=== PATIENT | female | born 1990 ===

== ENCOUNTER 2017-03-13 10:59 | Emergency (ER) | payer OTHER ==
[2017-03-13 11:08] VITALS: RESP 18
[2017-03-13] MEDS ORDERED: Sodium Chloride 0.9% 1,000 ML IV ONE ×2 (11:11→11:31)
[2017-03-13 11:42] LABS: BASO % 0.3 % (0.0-2.0); EOS % 0.6 % (0.0-4.0); HEMATOCRIT 40.8 % (34.0-47.0); LYMPH # 2.7 K/uL (1.0-4.3); LYMPH % 32.3 % (20.0-40.0); MEAN CELL VOLUME 85.8 fL (81.0-99.0); MEAN CORPUSCULAR HEMOGLOBIN 28.4 pg (27.0-31.0); MEAN CORPUSCULAR HGB CONC 33.1 g/dL (33.0-37.0); MEAN PLATELET VOLUME 8.8 fL (7.2-11.7); MONO # 0.7 K/uL (0.0-0.8); MONO % 7.9 % (0.0-10.0); RED CELL DISTRIBUTION WIDTH 13.9 % (11.5-14.5); WHITE BLOOD COUNT 8.3 K/uL (4.8-10.8)
[2017-03-13 11:53] LABS: CHLORIDE 103 mmol/L (98-107); POTASSIUM 3.7 mmol/L (3.6-5.2); SODIUM 140 mmol/L (132-148)
[2017-03-13 11:55] LABS: BILIRUBIN,TOTAL 0.8 mg/dL (0.2-1.3); GFR AFRICAN-AMERICAN > 60
[2017-03-13 11:56] LABS: ALB/GLOB RATIO 1.1 (1.0-2.1); ALKALINE PHOSPHATASE 64 U/L (38-126); ALT/SGPT 28 U/L (9-52); AST/SGOT 38 U/L (14-36); BLOOD UREA NITROGEN 5 mg/dL (7-17); CALCIUM 8.5 mg/dl (8.6-10.4); CARBON DIOXIDE 23 mmol/L (22-30); GLUCOSE,RANDOM 101 mg/dL (65-105); TOTAL PROTEIN 7.8 g/dL (6.3-8.3)
[2017-03-13] MEDS ORDERED: Sodium Chloride 0.9% 1,000 ML ONE (12:16)
[2017-03-13 12:37] LABS: RBC URINE 6 /hpf (0-3); URINE BACTERIA RARE (<OCC); URINE BILIRUBIN NEGATIVE (NEGATIVE); URINE BLOOD 2+ (NEGATIVE); URINE COLOR Yellow (YELLOW); URINE GLUCOSE (UA) NORMAL (Normal); URINE KETONE NEGATIVE (NEGATIVE); URINE LEUKOCYTE ESTERASE NEG Leu/uL (Negative); URINE PROTEIN NEGATIVE (NEGATIVE); URINE UROBILINOGEN NORMAL mg/dL (0.2-1.0); WBC URINE < 1 /hpf (0-5)
[2017-03-13 15:11] VITALS: BP 95/62; PULSE 65; TEMP 98.1; O2SAT 100
--- NOTE | 2017-03-13 15:55 | US ---
PROCEDURE: OB Pelvic Ultrasound HISTORY: and bleeding COMPARISON: None available. FINDINGS: UTERUS: Single Live intrauterine gestation. CRL equivalent to 6 weeks 5 days gestatioin Gestational sac diameter equivalent to 6 weeks 6 days gestation age (Ultrasound estimated): 6 weeks 6 days Date of delivery (Ultrasound estimated) : 10/31/2017 Heart rate: 115 bpm. 3 mm yolk sac identified. Sheri-gestational hemorrhage: Small subchorionic hemorrhage, 8 x 9 x 9 mm. Uterus measures 10.7 x 5.9 x 7.0 cm. No mass CERVIX: Closed. Measures 3.1 cm in length. RIGHT OVARY: Measures 2.6 x 2.0 x 2.2 cm. No mass. Normal flow. LEFT OVARY: Measures 3.7 x 1.3 x 2.6 cm. No mass. Normal flow. FREE FLUID: None. OTHER FINDINGS: None. IMPRESSION: Single live intrauterine gestation of approximately 6 weeks 6 days gestational age. heart rate 115 beats per minute. Small subchorionic hemorrhage. Otherwise unremarkable.
--- NOTE | 2017-03-13 16:30 | C.PDOC ---
History Of Present Illness 27-year-old female, presents to the emergency department with complaints of vaginal spotting and lower abdominal cramping. Patient notes similar symptoms, 15 days ago for which she was seen at another institution, and told that she had a threatened . Patient denies any nausea/vomiting. Pain is rated 5/ 10, it is constant, dull and crampy. No other complaints at this time. Time Seen by Provider: 03/13/17 11:11 Chief Complaint (Nursing): Female Genitourinary History Per: Patient History/Exam Limitations: no limitations Past Medical History Reviewed: Historical Data, Nursing Documentation, Vital Signs Vital Signs: Last Vital Signs Temp 98.1 F 03/13/17 15:10 Pulse 65 03/13/17 15:10 Resp 18 03/13/17 15:10 BP 95/62 L 03/13/17 15:10 Pulse Ox 100 03/13/17 18:16 Family History: States: Unknown Family Hx - Social History Hx Alcohol Use: No Hx Substance Use: No - Immunization History Hx Tetanus Toxoid Vaccination: No Hx Influenza Vaccination: No Review Of Systems Except As Marked, All Systems Reviewed And Found Negative. Constitutional: Negative for: Fever, Chills Cardiovascular: Negative for: Chest Pain, Palpitations Respiratory: Negative for: Shortness of Breath Gastrointestinal: Positive for: Abdominal Pain. Negative for: Nausea, Vomiting Genitourinary: Positive for: Vaginal Bleeding. Negative for: Vaginal Discharge Musculoskeletal: Negative for: Back Pain Skin: Negative for: Rash Physical Exam - Physical Exam Appears: Non-toxic, No Acute Distress Skin: Warm, Dry, No Rash Head: Atraumatic, Normacephalic Eye(s): bilateral: Normal Inspection, PERRL Nose: Normal Oral Mucosa: Moist Lips: Normal Appearing Neck: Normal ROM Respiratory: No Accessory Muscle Use Extremity: Normal ROM Neurological/Psych: Oriented x3, Normal Speech ED Course And Treatment - Laboratory Results Result Diagrams: 03/13/17 11:33 03/13/17 11:33 O2 Sat by Pulse Oximetry: 100 - CT Scan/US US pelvis Other Rad Studies (CT/US): Read By Radiologist, Radiology Report Reviewed CT/US Interpretation: Accession No. : [id number]. Patient Name / ID : CARMEN AYOUB / [id number]. Exam Date : 03/13/2017 14:12:22 ( Approved ). Study Comment : Sex / Age : F / 27Y. Creator : Ha Fox MD. Dictator : Ha Fox MD. Multineedle Shirrer : Aws Architect : Ha Fox MD. Approver2 : Report Date : 03/13/2017 15:53:56. My Comment : . PROCEDURE : OB Pelvic Ultrasound. HISTORY: and bleeding. COMPARISON: None available. FINDINGS: UTERUS: Single Live intrauterine gestation. CRL equivalent to 6 weeks 5 days gestatioin. Gestational sac diameter equivalent to 6 weeks 6 days gestation. age (Ultrasound estimated): 6 weeks 6 days. Date of delivery (Ultrasound estimated) : 10/31/2017. Heart rate: 115 bpm. 3 mm yolk sac identified. Sheri-gestational hemorrhage: Small subchorionic hemorrhage, 8 x 9 x 9 mm. Uterus measures 10.7 x 5.9 x 7.0 cm. No mass. CERVIX: Closed. Measures 3.1 cm in length. RIGHT OVARY: Measures 2.6 x 2.0 x 2.2 cm. No mass. Normal flow. LEFT OVARY: Measures 3.7 x 1.3 x 2.6 cm. No mass. Normal flow. FREE FLUID: None. OTHER FINDINGS: None. IMPRESSION: Single live intrauterine gestation of approximately 6 weeks 6 days gestational age. heart rate 115 beats per minute. Small subchorionic hemorrhage. Otherwise unremarkable. Disposition Counseled Patient/Family Regarding: Studies Performed, Diagnosis, Need For Followup - Disposition Referrals: [facility] [place] [Outside] [facility] [Outside] [facility] [Outside] Disposition: HOME/ ROUTINE Disposition Time: 16:27 Condition: STABLE Prescriptions: Multivit/Folic Acid/I [ Plus] 1 tab PO DAILY #30 tab Instructions: Threatened Miscarriage (ED) Forms: Gen Discharge Inst Togolese - POA Present On Arrival: None - Clinical Impression Clinical Impression: Threatened - Scribe Statement The provider has reviewed the documentation as recorded by the Katyaibbora [place] All medical record entries made by the Katyaibbora were at my direction and personally dictated by me. I have reviewed the chart and agree that the record accurately reflects my personal performance of the history, physical exam, medical decision making, and the department course for this patient. I have also personally directed, reviewed, and agree with the discharge instructions and disposition.
== END 2017-03-13 16:42 | disposition home or self-care (01) ==
LOC: C.ER 10:59
DX: O20.0 Threatened abortion (principal); Z3A.01 Less than 8 weeks gestation of pregnancy
CPT/HCPCS: 76805; 76817; 80053; 81001; 84702; 84703; 85025; 86850; 86900; 96360; 99285; J7040